=== PATIENT | male | born 1970 | race Two or more races ===

== ENCOUNTER 2020-02-14 15:00 | Observation (INO) | payer BC, OTHER ==
[~2020-02-14] VITALS: Ht 167.6 cm; Wt 81.3 kg
--- NOTE | 2020-02-14 15:20 | NUR ---
BIB [facility], PT WITH C/O CHEST PAINS INTERMITTANTLY AND SOB SINCE THANKSGIVING. PT ARRIVES PAIN FREE. 97%RA PT TO ALL MONITORS AT THIS TIME. NO SOB/CP AT THIS TIME.
[2020-02-14] MEDS ORDERED: ASPIRIN 81 MG TABLET CHEW ONE (16:14)
[2020-02-14 16:29] LABS: BASOPHILS % (AUTO) 1 % (0-1); EOSINOPHILS % (AUTO) 1 % (1-7); LYMPHOCYTES % (AUTO) 29 % (22-44); MEAN CORPUSCULAR HEMOGLOBIN 30.9 pg (27.5-34.5); MEAN CORPUSCULAR HGB CONC 34.5 g/dL (33.2-36.2); MEAN PLATELET VOLUME 7.8 fL (7.4-10.4); MONOCYTES % (AUTO) 11 % (2-9); NEUTROPHILS % (AUTO) 59 % (42-75); PLATELET COUNT 225 x10^3/uL (130-400); RED BLOOD COUNT 4.97 x10^6/uL (4.38-5.82); RED CELL DISTRIBUTION WIDTH 12.6 % (9.4-14.8)
[2020-02-14] MEDS ORDERED: SODIUM CHLORIDE FLUSH 10ML SYR IVF ONE (16:30)
[2020-02-14] MEDS ORDERED: ASPIRIN 81 MG TABLET CHEW PO ONE (16:30)
[2020-02-14 16:39] LABS: ALBUMIN 4.1 g/dL (3.4-5.0); ANION GAP 4 mmol/L (5-15); CALCIUM 8.8 mg/dL (8.5-10.1); CHLORIDE 106 mmol/L (98-107)
[2020-02-14 16:41] LABS: MD NO
[2020-02-14 16:44] LABS: ALANINE AMINOTRANSFERASE 31 U/L (12-78); ALKALINE PHOSPHATASE 67 U/L (45-117); BILIRUBIN,TOTAL 1.7 mg/dL (0.2-1.0); CREATININE 1.02 mg/dL (0.7-1.3); TOTAL PROTEIN 7.2 g/dL (6.4-8.2); TROPONIN I < 0.015 ng/mL (0.000-0.045)
--- NOTE | 2020-02-14 19:28 | NUR ---
pt awake and alert, to be admitted actually, per MD. pt no distress currently, and also on cr monitor, side rails up x2 and call light within reach.
--- NOTE | 2020-02-14 20:03 | NUR ---
pt awake and alert x4, sits up well, and ambulates. remains on cr monitor, to be admitted. and regular diet sandwich and chips provided to pt as he is hungry. voided x1 in urinal in room. call light within reach. pts at bedside.
--- NOTE | 2020-02-14 21:06 | NUR ---
pt a&ox4. piv started to left hand. 18g x1 attempt. pt tolerated well. report called to floor RN without issue. pt to go upstairs.
[2020-02-14 21:29] VITALS: BP 156/77
[2020-02-14] MEDS ORDERED: ATOR20TA86 PO (22:43)
[2020-02-14] MEDS ORDERED: LISI10TA2 PO (22:43)
[2020-02-14] MEDS ORDERED: LIDODERM 5% PATCH TD PRN (23:00)
[2020-02-14] MEDS ORDERED: DOCUSATE 100 MG CAPSULE PO PRN (23:00)
[2020-02-14] MEDS ORDERED: ACETAMINOPHEN 325 MG TABLET PO PRN (23:00)
[2020-02-14] MEDS ORDERED: ONDANSETRON 2MG/ML, 2ML IVPush PRN (23:00)
[2020-02-14] MEDS ORDERED: MELATONIN 5 MG TABLET PO PRN (23:00)
[2020-02-14] MEDS ORDERED: LABETALOL 5MG/ML, 20ML IVPush PRN (23:00)
[2020-02-14] MEDS ORDERED: morphine SULFATE 10 MG/ML, 1ML IVPush PRN (23:00)
[2020-02-14] MEDS ORDERED: ENOXAPARIN 40 MG/0.4 ML SQ SCH (23:00)
[2020-02-14] MEDS ORDERED: NITROGLYCERIN 0.4 MG BOTTLE (25 TABS) SL PRN (23:00)
[2020-02-15] MEDS ORDERED: MAALOX/HYOSCYAMINE/LIDOCAINE 45 ML BTL PO PRN (00:30)
[2020-02-15 00:42] LABS: TROPONIN I < 0.015 ng/mL (0.000-0.045)
[2020-02-15 00:44] VITALS: BP 115/72
[2020-02-15 06:36] LABS: ANION GAP 3 mmol/L (5-15); CALCIUM 9.3 mg/dL (8.5-10.1); CHLORIDE 110 mmol/L (98-107)
[2020-02-15 06:42] LABS: CHOL/HDL RATIO 2.1; CHOLESTEROL, TOTAL 97 mg/dL (140-239); CREATININE 0.99 mg/dL (0.7-1.3); HDL CHOL % 48 % (26-37); HDL CHOLESTEROL (DIRECT) 47 mg/dL (40-60); LDL CHOLESTEROL,CALCULATED 31 mg/dL (54-169); LDL/HDL RATIO 0.7 (0.5-3.0); TRIGLYCERIDES 97 mg/dL (50-200); TROPONIN I < 0.015 ng/mL (0.000-0.045); VLDL CHOLESTEROL 19 mg/dL (0-25)
[2020-02-15 07:10] VITALS: BP 123/75
[2020-02-15] MEDS ORDERED: ATORVASTATIN 10 MG TABLET PO SCH (09:00)
[2020-02-15] MEDS ORDERED: LISINOPRIL 10 MG TABLET PO SCH (09:00)
[2020-02-15] MEDS ORDERED: NITR0.4T28 SL (12:26)
== END 2020-02-15 16:58 | disposition home or self-care (01) ==
LOC: ED 19:20 → INTOOBSV 19:26 → EDIP 19:26 → ED 19:41 → 5SO 21:21
PROVIDERS: ADMIT Family Medicine; ATTEND Hospitalist
DX: R07.89 Other chest pain (principal); I10 Essential (primary) hypertension; E78.5 Hyperlipidemia, unspecified; I45.10 Unspecified right bundle-branch block; R06.02 Shortness of breath; Z79.899 Other long term (current) drug therapy
CPT/HCPCS: 36415; 71045; 80048; 80053; 80061; 83036; 83690; 83735; 84100; 84443; 84484; 85025; 85379; 93005; 93017; 93306; 96372; 99285; G0378; J1650

== ENCOUNTER 2020-10-26 16:59 | Inpatient (IN) | payer OTHER ==
[~2020-10-26] VITALS: Ht 160 cm; Wt 77.5 kg
[~2020-10-26 16:59] MED LIST: ATOR20TA86 PO; LISI10TA19 PO; NITR0.4T28 SL
--- NOTE | 2020-10-26 17:20 | NUR ---
BIBA FOR WITNESSED SEIZURE LIKE ACTIVITIY PER FAMILY X 3. FAMILY STATES THAT PATIENT HAD 3 EVENTS BACK TO BACK, ON ARRIVAL OF EMS, PATIENT WAS COOL, CLAMY, PALE, WITH UNDETECTABLE PULSE OR BLOOD PRESSURE, PLACED ON PAD TO FIND AN ALL ATRIA BEAT. AFTER ABOUT 10 SECONDS OF THAT, PATIENT CONVERTED INTO A NORMAL SINUS RHYTHM AND WAS GSC 9. ON ARRIVAL TO ER PATIENT IS ALERT AND ORIENTED TO PERSON, PLACE AND TIME. PATIENT IS STATING THAT HE THINKS HE HAD A SEIZURE. PATIENT WARM, PINK, AND DRY. PATIENT PLACED ON DROP FORGER, NORMAL SINUS. EKG COMPELTED. NOTIFIED. PATIENT PLACED ON ZOLL WITH CODE CART AT BEDSIDE. FAMILY AT BEDSIDE.
[2020-10-26 17:58] LABS: BASOPHILS % (AUTO) 0 % (0-1); EOSINOPHILS % (AUTO) 1 % (1-7); LYMPHOCYTES % (AUTO) 10 % (22-44); MEAN CORPUSCULAR HEMOGLOBIN 31.1 pg (27.5-34.5); MEAN CORPUSCULAR HGB CONC 34.6 g/dL (33.2-36.2); MEAN PLATELET VOLUME 7.6 fL (7.4-10.4); MONOCYTES % (AUTO) 6 % (2-9); NEUTROPHILS % (AUTO) 83 % (42-75); PLATELET COUNT 151 x10^3/uL (130-400); RED CELL DISTRIBUTION WIDTH 13.1 % (9.4-14.8)
[2020-10-26 18:11] LABS: ALBUMIN 3.8 g/dL (3.4-5.0); ANION GAP 4 mmol/L (5-15); CALCIUM 8.8 mg/dL (8.5-10.1); CHLORIDE 106 mmol/L (98-107); CREATININE 1.27 mg/dL (0.7-1.3)
[2020-10-26 18:15] LABS: TROPONIN I < 0.015 ng/mL (0.000-0.045)
[2020-10-26 18:50] LABS: FREE T4 (FREE THYROXINE) 0.93 ng/dL (0.76-1.46)
[2020-10-26] MEDS ORDERED: CARB200T4 PO (18:57)
--- NOTE | 2020-10-26 18:57 | NUR ---
ADMITTING PROVIDER AT BEDSIDE
[2020-10-26] MEDS ORDERED: ACETAMINOPHEN 325 MG TABLET PO PRN (19:30)
[2020-10-26] MEDS ORDERED: GUAIFENESIN/DM 200-20MG, 10ML UDC PO PRN (19:30)
[2020-10-26] MEDS ORDERED: ONDANSETRON 2MG/ML, 2ML IVPush PRN (19:30)
[2020-10-26] MEDS ORDERED: LABETALOL 5MG/ML, 20ML IVPush PRN (19:30)
[2020-10-26] MEDS ORDERED: morphine SULFATE 10 MG/ML, 1ML IVPush PRN (19:30)
[2020-10-26] MEDS ORDERED: POLYETHYLENE GLYCOL 17 GM PACKET PO PRN (19:30)
[2020-10-26] MEDS ORDERED: MELATONIN 5 MG TABLET PO PRN (19:30)
[2020-10-26 20:42] LABS: TROPONIN I 0.051 ng/mL (0.000-0.045)
--- NOTE | 2020-10-26 20:50 | NUR ---
REPORT TO YVONNE DAMON
[2020-10-26] MEDS ORDERED: ACETAMINOPHEN 500 MG TABLET PO PRN (21:47)
[2020-10-26] MEDS: CARBAMAZEPINE 200 MG TABLET PO SCH (22:12)
[2020-10-26] MEDS: ENOXAPARIN 40 MG/0.4 ML SQ SCH (22:12)
[2020-10-26 22:45] VITALS: BP 126/79
[2020-10-27 01:05] VITALS: BP 149/83
[2020-10-27 02:21] LABS: TROPONIN I 0.031 ng/mL (0.000-0.045)
[2020-10-27 06:26] LABS: ANION GAP 8 mmol/L (5-15); CALCIUM 8.7 mg/dL (8.5-10.1); CHLORIDE 105 mmol/L (98-107)
[2020-10-27 06:30] LABS: BASOPHILS % (AUTO) 1 % (0-1); EOSINOPHILS % (AUTO) 2 % (1-7); LYMPHOCYTES % (AUTO) 28 % (22-44); MEAN CORPUSCULAR HEMOGLOBIN 31.1 pg (27.5-34.5); MEAN CORPUSCULAR HGB CONC 34.8 g/dL (33.2-36.2); MEAN PLATELET VOLUME 7.8 fL (7.4-10.4); MONOCYTES % (AUTO) 10 % (2-9); NEUTROPHILS % (AUTO) 60 % (42-75); PLATELET COUNT 164 x10^3/uL (130-400); RED BLOOD COUNT 4.92 x10^6/uL (4.38-5.82); RED CELL DISTRIBUTION WIDTH 12.9 % (9.4-14.8)
[2020-10-27 09:20] VITALS: BP 128/76
[2020-10-27] MEDS: ATORVASTATIN 10 MG TABLET PO SCH (09:23)
[2020-10-27] MEDS: CARBAMAZEPINE 200 MG TABLET PO SCH ×3 (09:23→20:53)
[2020-10-27] MEDS: LISINOPRIL 10 MG TABLET PO SCH (09:23)
[2020-10-27] MEDS ORDERED: LIDOCAINE 2%, 20ML ONE (12:17)
[2020-10-27 14:15] VITALS: BP 132/69
[2020-10-27 19:54] VITALS: BP 128/85
[2020-10-27] MEDS: ENOXAPARIN 40 MG/0.4 ML SQ SCH (20:53)
[2020-10-27 22:24] LABS: MICROSCOPIC AUTO
[2020-10-28 00:17] VITALS: BP 111/73
[2020-10-28 06:55] VITALS: BP 110/72
[2020-10-28] MEDS ORDERED: NICOTINE 21 MG/24 HR PATCH.TD24 TD SCH (09:00)
[2020-10-28] MEDS: CARBAMAZEPINE 200 MG TABLET PO SCH ×2 (09:14→16:49)
[2020-10-28] MEDS: LISINOPRIL 10 MG TABLET PO SCH (09:14)
[2020-10-28] MEDS: ATORVASTATIN 10 MG TABLET PO SCH (09:14)
[2020-10-28 13:25] VITALS: BP 116/76
== END 2020-10-28 20:55 | disposition home or self-care (01) | DRG 262 ==
LOC: ED 18:27 → EDIP 18:42 → 5SO 21:43
PROVIDERS: ADMIT Internal Medicine; ATTEND Internal Medicine
PROC: 0JH632Z Insertion of Monitoring Device into Chest Subcutaneous Tissue and Fascia, Percutaneous Approach (ICD-10-PCS; principal; 2020-10-27)
PROC: 0T9B30Z Drainage of Bladder with Drainage Device, Percutaneous Approach (ICD-10-PCS; 2020-10-27)
DX: I44.2 Atrioventricular block, complete (principal); E78.5 Hyperlipidemia, unspecified; F19.10 Other psychoactive substance abuse, uncomplicated; G40.909 Epilepsy, unspecified, not intractable, without status epilepticus; I10 Essential (primary) hypertension; R32 Unspecified urinary incontinence; I45.10 Unspecified right bundle-branch block; Z79.899 Other long term (current) drug therapy
CPT/HCPCS: 33285; 36415; 99285; J3490; 70450; 71045; 80048; 81001; 82040; 83735; 83880; 84439; 84443; 84484; 85025; 87635; 93005; 95819; C1764; G0378; J1650

== ENCOUNTER 2020-11-04 14:54 | Inpatient (IN) | payer OTHER ==
[~2020-11-04] VITALS: Ht 160 cm; Wt 81.2 kg
[~2020-11-04 14:54] MED LIST changes: +CARB200T4 PO
[2020-11-04] MEDS ORDERED: SODIUM CHLORIDE FLUSH 10ML SYR IVF ONE (15:30)
[2020-11-04] MEDS: PLEASE ENTER HEIGHT AND WEIGHT MC SCH ×2 (15:30→23:04)
[2020-11-04 15:34] LABS: ALBUMIN 4.5 g/dL (3.4-5.0); ANION GAP 7 mmol/L (5-15); CALCIUM 8.7 mg/dL (8.5-10.1); CHLORIDE 105 mmol/L (98-107); CREATININE 0.93 mg/dL (0.7-1.3)
[2020-11-04 15:38] LABS: TROPONIN I < 0.015 ng/mL (0.000-0.045)
--- NOTE | 2020-11-04 15:39 | NUR ---
ARRIVAL EVENTS, PT HAS LOOP RECORDER, WAS NOTIFIED BY DR VASQUEZ'S OFFICE TO COME TO ED 2/2 PAUSES NOTED AND HEART BLOCK. PT PRESENTS WITH NO COMPLAINTS, ALL MONITORS PLACED AND EKG COMPLETED. RADIOTRANSPARENT PACER PADS PLACED AND 2 PIV EST, LABS DRAWN. DR VASQUEZ AT BEDSIDE. ASSESSMENT AND PLAN FOR PACER PLACEMENT TODAY DISCUSSED WITH PATIENT AND QUESTIONS ANSEWERED. PT IS PRIMARY SAMMARINESE SPEAKING PT REQUESTS SONMEENA TO TRANSLATE. CONSENT OBTAINED.
[2020-11-04 15:43] LABS: INTERNATIONAL NORMALIZED RATIO 1.02 (0.93-1.1); PROTHROMBIN TIME 10.9 Seconds (9.6-11.5)
--- NOTE | 2020-11-04 15:52 | NUR ---
MEENA COYNE C: [phone]
[2020-11-04 15:56] LABS: BASOPHILS % (AUTO) 1 % (0-1); EOSINOPHILS % (AUTO) 2 % (1-7); LYMPHOCYTES % (AUTO) 37 % (22-44); MEAN CORPUSCULAR HEMOGLOBIN 31.2 pg (27.5-34.5); MEAN CORPUSCULAR HGB CONC 34.9 g/dL (33.2-36.2); MEAN PLATELET VOLUME 7.6 fL (7.4-10.4); MONOCYTES % (AUTO) 9 % (2-9); NEUTROPHILS % (AUTO) 51 % (42-75); PLATELET COUNT 241 x10^3/uL (130-400); RED CELL DISTRIBUTION WIDTH 13.1 % (9.4-14.8)
[2020-11-04] MEDS ORDERED: DIPHENHYDRAMINE 25 MG CAPSULE PO PRN (16:00)
--- NOTE | 2020-11-04 16:06 | NUR ---
report from Annita. patient in bed, rails up, on monitor and zoll.
[2020-11-04] MEDS: SODIUM CHLORIDE 0.9% 1,000 ML IV SCH ×2 (16:09→22:58)
--- NOTE | 2020-11-04 16:13 | NUR ---
PT MOVED TO ROOM 33, SBAR RPT TO YVONNE BOB
--- NOTE | 2020-11-04 16:13 | NUR ---
talked to Rossana and garden labourer with Maribel Soliman MD want him to be admitted and have procedure tomorrow, they have to wait 6 hours after after patient ate.
[2020-11-04] MEDS ORDERED: CARBAMAZEPINE 200 MG TABLET ONE (16:17)
[2020-11-04] MEDS: CARBAMAZEPINE 200 MG TABLET PO SCH ×2 (16:20→22:58)
--- NOTE | 2020-11-04 17:05 | NUR ---
called lab aide and they will do pacer tomorrow, probably in afternoon. will go ahead and feed patient cardiac diet tonight since patient procedure tomorrow, per cath this great. patient npo after midnight
--- NOTE | 2020-11-04 18:58 | NUR ---
called report to YVONNE Vieira. patient in bed, calm.
[2020-11-04 21:37] VITALS: BP 129/71
[2020-11-04] MEDS: ATORVASTATIN 10 MG TABLET PO SCH (22:58)
[2020-11-05 00:49] VITALS: BP 119/77
[2020-11-05] MEDS: PLEASE ENTER HEIGHT AND WEIGHT MC SCH (07:30)
[2020-11-05 07:54] VITALS: BP 118/89
[2020-11-05] MEDS: SODIUM CHLORIDE 0.9% 1,000 ML IV SCH ×2 (08:00→13:00)
[2020-11-05] MEDS: LISINOPRIL 10 MG TABLET PO SCH (09:04)
[2020-11-05] MEDS: CARBAMAZEPINE 200 MG TABLET PO SCH ×3 (09:04→20:40)
[2020-11-05 13:20] VITALS: BP 131/82
[2020-11-05] MEDS ORDERED: MIDAZOLAM 1 MG/ML, 5ML ONE (16:00)
[2020-11-05] MEDS ORDERED: CEFAZOLIN PMX 1GM/50ML 50 ML ONE (16:00)
[2020-11-05] MEDS ORDERED: FENTANYL PF 100 MCG/2ML ONE (16:00)
[2020-11-05] MEDS ORDERED: LIDOCAINE 2%, 20ML ONE (16:01)
[2020-11-05] MEDS ORDERED: CEFAZOLIN 1,000 MG ONE (16:01)
[2020-11-05] MEDS ORDERED: LIDOCAINE 1%, 20ML ONE (17:28)
[2020-11-05] MEDS ORDERED: MIDAZOLAM 1 MG/ML, 2ML ONE (17:48)
[2020-11-05] MEDS ORDERED: HYDROcodone/APAP 5/325 TABLET PO PRN (18:30)
[2020-11-05] MEDS ORDERED: ACETAMINOPHEN 325 MG TABLET PO PRN (18:30)
[2020-11-05] MEDS ORDERED: HOLD MEDICATION MC PRN (18:30)
[2020-11-05 18:51] VITALS: BP 134/88
[2020-11-05] MEDS: ATORVASTATIN 10 MG TABLET PO SCH (20:40)
[2020-11-05] MEDS: ACETAMINOPHEN 325 MG TABLET PO PRN (20:40)
[2020-11-05] MEDS: SODIUM CHLORIDE FLUSH 10ML SYR IVF SCH (20:40)
[2020-11-06 00:53] VITALS: BP 130/83
[2020-11-06] MEDS: ACETAMINOPHEN 325 MG TABLET PO PRN ×2 (04:54→11:43)
[2020-11-06 06:51] VITALS: BP 120/75
[2020-11-06] MEDS: SODIUM CHLORIDE FLUSH 10ML SYR IVF SCH (09:37)
[2020-11-06] MEDS: CARBAMAZEPINE 200 MG TABLET PO SCH (09:37)
[2020-11-06] MEDS: LISINOPRIL 10 MG TABLET PO SCH (09:37)
== END 2020-11-06 12:51 | disposition home or self-care (01) | DRG 244 ==
LOC: ED 15:50 → EDIP 16:04 → 5SO 19:44
PROVIDERS: ADMIT Internal Medicine Cardiovascular Disease; ATTEND Internal Medicine Cardiovascular Disease
PROC: 0JH606Z Insertion of Pacemaker, Dual Chamber into Chest Subcutaneous Tissue and Fascia, Open Approach (ICD-10-PCS; principal; 2020-11-05)
PROC: 02H60JZ Insertion of Pacemaker Lead into Right Atrium, Open Approach (ICD-10-PCS; 2020-11-05)
PROC: 02HK0JZ Insertion of Pacemaker Lead into Right Ventricle, Open Approach (ICD-10-PCS; 2020-11-05)
DX: I44.2 Atrioventricular block, complete (principal); E78.00 Pure hypercholesterolemia, unspecified; E78.5 Hyperlipidemia, unspecified; I10 Essential (primary) hypertension; G40.909 Epilepsy, unspecified, not intractable, without status epilepticus; Z95.0 Presence of cardiac pacemaker; Z87.891 Personal history of nicotine dependence
CPT/HCPCS: 33208; 36415; 99285; J3490; 71045; 80048; 82040; 84484; 85025; 85610; 85730; 87635; 93005; 99156; 99157; C1779; C1785; C1892; G0378; J0690; J2250; J3010; J7030